=== PATIENT | male | born 1980 ===

== ENCOUNTER 2018-02-20 21:21 | Emergency (ER) | payer OTHER, MEDICAID ==
[2018-02-20 21:36] VITALS: BP 130/79; PULSE 81; RESP 16; TEMP 97.9; O2SAT 97
--- NOTE | 2018-02-20 22:39 | C.PDOC ---
History Of Present Illness The patient reports 2 day history of non-radiaing low back pain which is described as achy. Patient reports that he does a lot of heavy lifting at work and the pain worsened while working today. The patient reports that the pain is worse with movement and bending forward. Denies fever, numbness, weakness, fall/ trauma, bowel/bladder incontinence. Time Seen by Provider: 02/20/18 21:49 Chief Complaint (Nursing): Back Pain History Per: Patient History/Exam Limitations: no limitations Onset/Duration Of Symptoms: Persistent Current Symptoms Are (Timing): Still Present Quality Of Discomfort: "Pain" Recent travel outside of the [place]: No Past Medical History Reviewed: Historical Data, Nursing Documentation, Vital Signs Vital Signs: Last Vital Signs Temp 97.9 F 02/20/18 21:33 Pulse 81 02/20/18 21:33 Resp 16 02/20/18 21:33 BP 130/79 02/20/18 21:33 Pulse Ox 97 02/20/18 22:45 - Medical History PMH: Asthma Denies: Chronic Kidney Disease Family History: States: Diabetes, Hypertension - Social History Hx Tobacco Use: Yes ("Light use") Hx Alcohol Use: Yes Hx Substance Use: No - Immunization History Hx Tetanus Toxoid Vaccination: Yes Hx Influenza Vaccination: No Hx Pneumococcal Vaccination: Yes Review Of Systems Except As Marked, All Systems Reviewed And Found Negative. Physical Exam - Physical Exam Appears: Non-toxic, No Acute Distress Skin: Normal Color, Warm, No Rash Head: Atraumatic, Normacephalic Eye(s): bilateral: Normal Inspection, PERRL, EOMI Oral Mucosa: Moist Neck: Normal ROM, No Midline Cervical Tenderness, No Paracervical Tenderness, Supple Chest: Symmetrical, No Tenderness Cardiovascular: Rhythm Regular, No Friction Rub, No Murmur Respiratory: Normal Breath Sounds, No Rales, No Rhonchi, No Wheezing Gastrointestinal/Abdominal: Bowel Sounds (active), Soft, No Tenderness Back: No CVA Tenderness, Paraspinal Tenderness (bilateral paralumbar tenderness) Extremity: Normal ROM, No Tenderness, No Swelling Neurological/Psych: Oriented x3, Normal Speech, Normal Motor Gait: Steady ED Course And Treatment O2 Sat by Pulse Oximetry: 97 (on RA) Pulse Ox Interpretation: Normal Medical Decision Making Medical Decision Making: On re-exam, the patient reports improvement of symptoms. Lungs are CTA, heart is RRR, abdomen is soft, non-tender and tolerating PO well. Ambulatory in the ED with steady gait. Follow up with the PMD/medical clinic within 1-2 days. return if worsened. Disposition - Disposition Referrals: José Bear MD [Non-Staff] - Disposition: HOME/ ROUTINE Disposition Time: 22:42 Condition: GOOD Additional Instructions: Follow up with the PMD/medical clinic within 1-2 days. return if worsened. Prescriptions: Cyclobenzaprine [Flexeril] 5 mg PO TID #21 tab Lidocaine 5% [Lidoderm] 1 each TP DAILY #10 patch Naproxen [Naprosyn] 500 mg PO BID #20 tab Instructions: Low Back Pain in Adults Forms: [facility] (Kyrgyz), Work Excuse - Clinical Impression Clinical Impression: Low back pain
--- NOTE | 2018-02-21 08:37 | RAD ---
PROCEDURE: Radiographs of the Lumbar Spine. HISTORY: low back pain COMPARISON: No prior. FINDINGS: BONES: Normal alignment. No listhesis. Endplate ridging and probable degenerative type wedging early in this 37-year-old patient at the T12 level noted. L5-S1 Schmorl's node indentation smaller indentations upper lumbar spine. DISC SPACES: Unremarkable. OTHER FINDINGS: None. 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 . A minimal compression type deformity cannot be entirely clear excluded in this would be un usual in a male patient 37 years old without any other known pre-existing medical history in correlate clinically
== END 2018-02-20 23:08 | disposition home or self-care (01) ==
LOC: C.ER 21:21
DX: M54.5 Low back pain (principal)
CPT/HCPCS: 72100; 96372; 99283; J1885